=== PATIENT | female | born 1955 | race Two or more races ===

== ENCOUNTER 2021-06-11 11:52 | Emergency (ER) | payer MEDICARE, BC ==
[~2021-06-11] VITALS: Ht 167.6 cm; Wt 90.7 kg
[2021-06-11 18:54] VITALS: BP 139/56
[2021-06-11] MEDS ORDERED: methylPREDNISolone SOD SUCC 125 MG/2 ML VL IM ONE (19:30)
[2021-06-11] MEDS ORDERED: KETOROLAC TROMETH 60MG/2ML VIAL IM ONE (19:30)
== END 2021-06-11 19:46 | disposition home or self-care (01) ==
LOC: ER 11:52
DX: M16.12 Unilateral primary osteoarthritis, left hip (principal); M16.11 Unilateral primary osteoarthritis, right hip; M54.16 Radiculopathy, lumbar region; E66.9 Obesity, unspecified; Z68.32 Body mass index [BMI] 32.0-32.9, adult
CPT/HCPCS: 73502; 96372; 99284; J1885; J2930